=== PATIENT | male | born 1945 | race African-American/Black ===

== ENCOUNTER 2017-10-23 09:49 | Emergency (ER) | payer MEDICARE, OTHER ==
[~2017-10-23] VITALS: Ht 175.3 cm; Wt 91.0 kg
[2017-10-23] MEDS ORDERED: SODIUM CHLORIDE 0.9% 1,000 ML IV ONE (10:23)
[2017-10-23 10:43] LABS: HEMOGLOBIN. 14.1 g/dL (14.0-18.0); MEAN CORPUSCULAR HEMOGLOBIN 28.2 pg (28.0-32.0); MEAN CORPUSCULAR VOLUME 82.1 fL (80.0-94.0); RED BLOOD CELL COUNT 4.99 mill/uL (4.7-6.1); RED CELL DISTRIBUTION WIDTH 16.7 % (11.6-14.6)
[2017-10-23 10:53] LABS: CHLORIDE 109 mEq/L (98-107)
[2017-10-23 11:09] LABS: ATYPICAL LYMPHOCYTES 2
[2017-10-23 11:14] LABS: MEAN PLATELET VOLUME 9.8 fl (7.4-10.4); PLATELET 64 x1000/uL (130-400); PLATELET ESTIMATE DECREASED
[2017-10-23 14:32] VITALS: BP 133/71
== END 2017-10-23 14:30 | disposition home or self-care (01) ==
LOC: ER 10:42
DX: R00.1 Bradycardia, unspecified (principal); D69.6 Thrombocytopenia, unspecified; N18.9 Chronic kidney disease, unspecified; E78.00 Pure hypercholesterolemia, unspecified; E86.0 Dehydration
CPT/HCPCS: 36415; 71045; 80053; 83735; 84484; 85025; 93005; 96360; 96361; 99285; J7030

== ENCOUNTER → 2022-09-04 | Outpatient (CLI) | payer MEDICARE, BC | END | disposition home or self-care (01) | LOC: US 09:43 | PROVIDERS: ATTEND Internal Medicine Nephrology | DX: N28.1 Cyst of kidney, acquired (principal); N40.0 Benign prostatic hyperplasia without lower urinary tract symptoms; N18.9 Chronic kidney disease, unspecified; I10 Essential (primary) hypertension | CPT/HCPCS: 76770 ==